=== PATIENT | female | born 1960 | race Caucasian/White ===

== ENCOUNTER → 2019-12-10 | Outpatient (CLI) | payer MEDICARE | END | disposition home or self-care (01) | LOC: CFH 10:45 | PROVIDERS: ATTEND Family Medicine | DX: R51 Headache (principal) | CPT/HCPCS: 70450 ==

== ENCOUNTER 2021-07-19 18:40 | Emergency (ER) | payer MEDICARE ==
[~2021-07-19] VITALS: Ht 165.1 cm; Wt 101.4 kg
[2021-07-19 19:05] VITALS: BP 175/104
[2021-07-19] MEDS ORDERED: KETOROLAC 30 MG/1 ML ONE ×2 (23:39→23:47)
[2021-07-20] MEDS ORDERED: KETOROLAC 30 MG/1 ML IM ONE
== END 2021-07-20 00:20 | disposition home or self-care (01) ==
LOC: ED 23:59
DX: M25.511 Pain in right shoulder (principal); M25.531 Pain in right wrist; E11.9 Type 2 diabetes mellitus without complications; Z88.2 Allergy status to sulfonamides; Z79.82 Long term (current) use of aspirin
CPT/HCPCS: 73030; 73110; 96372; 99284; J1885